=== PATIENT | male | born 1985 | race Caucasian/White ===

== ENCOUNTER 2024-12-22 22:03 | Emergency (ER) | payer OTHER, SELFPAY ==
[2024-12-22 22:12] VITALS: BP 125/76
[2024-12-22 22:47] LABS: Hematocrit 40.5 % (39.0-52.0); Hemoglobin 14.0 g/dL (13.0-18.0); Mean Corp Hgb Conc. 34.6 g/dL (33.0-37.0); Mean Corpuscular Volume 83.7 fL (80.0-94.0); Nucleated Red Blood Cells % 0 % (-); Platelet Count 224 10^3/uL (130-400); Red Cell Dist. Width 12.2 % (11.5-14.5)
[2024-12-22 23:04] LABS: ALT (SGPT) 20 U/L (0-50); AST (SGOT) 23 U/L (17-59); Albumin 4.5 g/dl (3.5-5.0); Alkaline Phosphatase 58 U/L (38-126); Blood Urea Nitrogen 9 mg/dl (9-20); Calcium 9.7 mg/dl (8.4-10.2); Carbon Dioxide 27 mmol/L (22-30); Chloride 102 mmol/L (98-107); Glucose 107 mg/dl (70-99); Potassium 4.1 mmol/L (3.5-5.1); Sodium 137 mmol/L (135-145); Total Protein 7.7 g/dl (6.3-8.2); eGFR > 60.00
[2024-12-23 01:18] VITALS: BMI 26.3
--- NOTE | 2024-12-23 01:50 | ED.GENMED ---
History of Present Illness
<Sasha Johnson MD - Last Filed: 12/23/24 02:20>
General
Chief Complaint: Abdominal Pain
Source: patient and family
Time Seen by Provider: 12/23/24 01:29
History of Present Illness
History of Present Illness:
39-year-old male presents emergency department with complaints of left lower quadrant pain has been there for the last week, constant, without exacerbating relieving factors, not sudden onset, not ripping or tearing quality. The pain does not
radiate, and is not associated with nausea, vomiting, diarrhea, back pain, leg pain, testicular pain, fever, chills, dysuria, urgency, frequency, diarrhea, constipation, or other complaints. Patient is very concerned that he may have diverticulitis
based on his reading. He does not have a history of having had a colonoscopy in the past.
Past History
<Sasha Johnson MD - Last Filed: 12/23/24 02:20>
Past History
ED Past Medical History: None
ED Past Surgical History: None
Social History
Tobacco: Non-smoker
Alcohol: None
Drug: None
Living: with family
Phy Exam
<Sasha Johnson MD - Last Filed: 12/23/24 02:20>
Physical Exam
Physical Exam:
GENERAL: Alert , in no apparent distress
EYE: pupils equal and reactive
NECK: Supple, no significant adenopathy.
ENT: o/p clr, mmm.
CARDIAC: Regular rate and rhythm .
LUNGS: Clear breath sounds bilaterally, no acute respiratory distress, no wheezes/rales/rhonchi
ABDOMEN: Soft, minimal left lower quadrant tenderness, no r/g, no cvat
NEUROLOGICAL: Alert and oriented, no focal neuro deficits
SKIN: Warm and dry, skin intact.
MUSCULOSKELETAL: No edema, well perfused.
PSYCH: Normal and appropriate interaction.
Course
<Sasha Johnson MD - Last Filed: 12/23/24 02:20>
Orders/Labs/Results
Orders:
Orders
12/22/24 22:26
Complete Blood Count/With Diff Urgent
Comprehensive Metabolic Panel Urgent
12/23/24 01:39
CT Abd/Pel (IV only)-[facility] only Urgent
Comment:
Reason For Exam: llq pain
12/23/24 02:19
Urinalysis Reflex To Culture Urgent
Date Specimen was Collected: 12/23/24
Time Specimen was Collected: 02:17
Abnormal Lab Results
12/22/24 12/23/24
22: 02:19
Glucose 107 H mg/dl
(70-99)
Urine Ketones 3+ A
(Negative)
12/22/24 22:26
12/22/24 22:26
Vital Signs
Initial and Last Documented VS:
Initial Vital Signs
Temp Pulse Resp BP Pulse Ox
97.8 F 75 16 125/76 97
12/22/24 22:12 12/22/24 22:12 12/22/24 22:12 12/22/24 22:12 12/22/24 22:12
Last Documented Vital Signs
Temp Pulse Resp BP Pulse Ox
98.1 F 73 18 122/79 98
12/23/24 05:35 12/23/24 05:35 12/23/24 05:35 12/23/24 05:35 12/23/24 05:35
<Miguel Bernstein DO - Last Filed: 12/23/24 06:44>
Orders/Labs/Results
Orders:
Orders
12/22/24 22:26
Complete Blood Count/With Diff Urgent
Comprehensive Metabolic Panel Urgent
12/23/24 01:39
CT Abd/Pel (IV only)-[facility] only Urgent
Comment:
Reason For Exam: llq pain
12/23/24 02:19
Urinalysis Reflex To Culture Urgent
Date Specimen was Collected: 12/23/24
Time Specimen was Collected: 02:17
Abnormal Lab Results
12/22/24 12/23/24
22:26 02:19
Glucose 107 H mg/dl
(70-99)
Urine Ketones 3+ A
(Negative)
12/22/24 22:26
12/22/24 22:26
Vital Signs
Initial and Last Documented VS:
Initial Vital Signs
Temp Pulse Resp BP Pulse Ox
97.8 F 75 16 125/76 97
12/22/24 22:12 12/22/24 22:12 12/22/24 22:12 12/22/24 22:12 12/22/24 22:12
Last Documented Vital Signs
Temp Pulse Resp BP Pulse Ox
98.1 F 73 18 122/79 98
12/23/24 05:35 12/23/24 05:35 12/23/24 05:35 12/23/24 05:35 12/23/24 05:35
<Sasha Johnson MD - Last Filed: 12/23/24 02:20>
*Pulse Oximetry
SaO2: 97
Oxygen Mode of Delivery: Room air
<Miguel Bernstein DO - Last Filed: 12/23/24 06:44>
*Pulse Oximetry
Patient hypoxic: not evaluated
*Critical Care Note
Total Time (30-74mins, 75-104mins- exclusive of procedures): Not Applicable
<Sasha Johnson MD - Last Filed: 12/23/24 02:20>
Update Note
Update Note:
Patient presents to the Emergency Department with ___left lower quadrant pain
Number and Complexity of Problems Addressed at the Encounter
� Chronic conditions affecting care:
� Acute Exacerbation and/or Progression of Chronic Illness:
� Differential Diagnosis includes: But not limited to diverticulitis, hernia, kidney stone, atypical appendicitis, mesenteric adenitis, etc. etc.
Amount and/or Complexity of Data to be Reviewed and Analyzed
� I performed an independent evaluation of and my interpretation is:
EKG:
CT:
Xrays:
Laboratory Studies: Normal
Other:
� Review of other/old records reveals:
� Clinical information was obtained by an independent historian: Mom who is at bedside
� Prescriptions/Medications Considered but not given:
� Further testing considered but not performed:
Risk of Complications and/or Morbidity or Mortality of Patient Management
� Social determinants of health affecting care:
� Discussion with other providers (PCP, Hospitalists, Consultants, etc):
� Escalation of care including admission/observation vs risk of discharge considered: Long discussion with patient, clinical concern for diverticulitis or other acute intra-abdominal process is low although not fully excluded at
this time. We will obtain a CT and if unremarkable patient will be discharged with close follow-up. Patient is very comfortable with this plan. Signout performed
<Miguel Bernstein, - Last Filed: 12/23/24 06:44>
Update Note
Update Note:
Patient presents to the Emergency Department with ___left lower quadrant pain
Number and Complexity of Problems Addressed at the Encounter
� Chronic conditions affecting care:
� Acute Exacerbation and/or Progression of Chronic Illness:
� Differential Diagnosis includes: But not limited to diverticulitis, hernia, kidney stone, atypical appendicitis, mesenteric adenitis, etc. etc.
Amount and/or Complexity of Data to be Reviewed and Analyzed
� I performed an independent evaluation of and my interpretation is:
EKG:
CT:
Xrays:
Laboratory Studies: Normal
Other:
� Review of other/old records reveals:
� Clinical information was obtained by an independent historian: Mom who is at bedside
� Prescriptions/Medications Considered but not given:
� Further testing considered but not performed:
Risk of Complications and/or Morbidity or Mortality of Patient Management
� Social determinants of health affecting care:
� Discussion with other providers (PCP, Hospitalists, Consultants, etc):
� Escalation of care including admission/observation vs risk of discharge considered: Long discussion with patient, clinical concern for diverticulitis or other acute intra-abdominal process is low although not fully excluded at
this time. We will obtain a CT and if unremarkable patient will be discharged with close follow-up. Patient is very comfortable with this plan. Signout performed
NAME: ALIX MARCUS
DATE OF EXAM: 12/23/2024
Patient No: [id number]
Physician: DAE^SASHA^Anali
Date of : 1985
Past Medical History (entered by Technologist):
Reason For Exam (entered by Technologist): lt sided pain x's 7 days
Other Notes (entered by Technologist):
Additional Information (per [facility]):
CT abdomen and pelvis with IV contrast
IMPRESSION:
Constipation without bowel obstruction or diverticulitis. The appendix is normal.
No cholecystitis, pancreatitis, or obstructing renal stone. Abdominal aorta is of normal caliber.
Case finalized on 12/23/24 04:43 EDT
John Mckeon M.D.
This report has been electronically signed and verified by the Radiologist whose name is printed above
Patient seen. I discussed CT scan findings with the patient. He will take MiraLAX [id number]. He has no questions at this time. His symptoms have subsided considerably. We did discuss return to ER instructions. Patient being discharged
in improved condition.
ED Attending Note
<Sasha Johnson MD - Last Filed: 12/23/24 02:20>
-
Portions of this chart may have been created with voice recognition software.� Occasional wrong word or��sound alike� substitutions may have occurred due to the inherent limitations of voice recognition software.
Discharge Plan
Departure
Patient Disposition: Home (Routine Discharge)
Date of Disposition: 12/23/24
Time of Disposition: :
Patient with high blood pressure during this ER visit?: Yes
Condition: Good
Discharge Problem:
Abdominal pain, Constipation
Instructions: Constipation, Adult (DC), Abdominal Pain, BLOOD PRESSURE
Referrals:
UNKNOWN - PT DOES,NOT KNOW [Family Provider]
Activity Restrictions/Additional Instructions:
PLEASE SEE YOUR DOCTOR THIS WEEK FOR FOLLOW-UP. IF YOU DEVELOP INCREASING NEW OR PERSISTENT PAIN, NAUSEA, VOMITING, FEVER, CHILLS, OR OTHER WORRISOME SIGNS, PLEASE RETURN TO THE ER IMMEDIATELY!
Interventions
Interventions:
*Risk Screen - Suicide Last Done: 12/22/24 22:12
*General Assessment Last Done: 12/22/24 22:12
*Neglect/Abuse Screening Last Done: 12/22/24 22:12
*ED- Fall Risk Assessment Last Done: 12/22/24 22:12
*ED COVID-19 Vaccine History Last Done: 12/22/24 22:12
*Nursing Disposition Last Done: 12/23/24 05:35
AF-Onshuk-Brhegvspsk Assessment Last Done: 12/23/24 01:19
Discharge Date and Time
Discharge Date/Time: 12/23/24 05:37
Print Language: HUNGARIAN
[2024-12-23 02:41] LABS: Urine Character Clear (Clear)
[2024-12-23 03:38] VITALS: BP 128/74
[2024-12-23 05:35] VITALS: BP 122/79
== END 2024-12-23 05:37 | disposition home or self-care (01) ==
LOC: EMR 22:03
PROVIDERS: Emergency Medicine; EMERGENCY PHYSICIAN Emergency Medicine
DX: K59.00 Constipation, unspecified (principal); R10.32 Left lower quadrant pain
CPT/HCPCS: 99284; 74177; 80053; 81003; 85025; Q9967